=== PATIENT | male | born 1990 | race Caucasian/White ===

== ENCOUNTER 2016-07-18 07:10 | Day surgery (SDC) | payer BC ==
[2016-07-14 12:54] VITALS: BMI 20.7
[~2016-07-18 07:10] MED LIST: DEXAMETHASONE SOD PHOSPHATE 10 MG/ML 1 ML VIAL IV ONE; DEXAMETHASONE SOD PHOSPHATE 4 MG/ML 1 ML VIAL IV ONE; FAMOTIDINE 20 MG/2 ML VIAL IV ONE; LACTATED RINGERS 1,000 ML IV SCH; LIDOCAINE 1% 20 ML VIAL (10MG/ML) FOR IV START INTRADERMA PRN; ONDANSETRON 4 MG/2 ML VIAL IVP ONE; ONDANSETRON 4 MG/2 ML VIAL IVP STA; SCOPOLAMINE 1.5MG/72HR PATCH TRANSDERM ONE; ceFAZolin 2 GM in SODIUM CHLORIDE 0.9% 100 ML IVPB ONE; metroNIDAZOLE-NS PMX 500 MG in SALINE 1 100ML.BAG IVPB ONE
[2016-07-18] MEDS ORDERED: PROPOFOL 10 MG/ML 20 ML VIAL IV ONE (08:18)
[2016-07-18] MEDS ORDERED: LIDOCAINE 1% INJ 10MG/ML (20 ML MDV) ONE (08:18)
[2016-07-18] MEDS ORDERED: fentaNYL (PF) 50 MCG/ML 2 ML AMP ONE (08:18)
[2016-07-18] MEDS ORDERED: MIDAZOLAM 2 MG/2 ML VIAL ONE (08:18)
[2016-07-18] MEDS ORDERED: GLYCOPYRROLATE 0.2 MG/ML 2 ML VIAL ONE (08:18)
[2016-07-18] MEDS ORDERED: ROCURONIUM BROMIDE 10 MG/ML 10 ML VIAL IV ONE (08:18)
[2016-07-18] MEDS ORDERED: SUCCINYLCHOLINE CHLORIDE 100 MG/5 ML SYR IV ONE (08:18)
[2016-07-18] MEDS ORDERED: NEOSTIGMINE 1 MG/ML 10 ML VIAL ONE (08:18)
[2016-07-18] MEDS ORDERED: LIDOCAINE 1%-EPI 1:100,000 20 ML VIAL SQ ONE ×2 (08:51)
[2016-07-18] MEDS ORDERED: LACTATED RINGERS 1,000 ML IV ONE (10:07)
[2016-07-18] MEDS: HYDROmorphone 1 MG/ML 1 ML SYRINGE IVP PRN ×4 (10:20→10:40)
[2016-07-18 10:38] VITALS: TEMP 97.8
[2016-07-18] MEDS ORDERED: MEPERIDINE 50 MG/ML SYRINGE IVP ONE (10:49)
[2016-07-18 11:35] VITALS: RESP 18
[2016-07-18 13:50] VITALS: BP 130/76; PULSE 72
--- NOTE | 2016-07-18 22:06 | OP ---
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 POSTOPERATIVE DIAGNOSIS: Chronic right submandibular sialadenitis with sialoliths. OPERATION: 1. Right submandibular gland excision. 2. EMG facial nerve monitoring. ANESTHESIA: General. ESTIMATED BLOOD LOSS: Minimal, less than 5 mL. COMPLICATIONS: None. SPECIMENS REMOVED: OPERATIVE FINDINGS: INDICATIONS: This is a 25-year-old white male who has developed a calculus in the hilus of the right submandibular gland. He has had obstructive symptoms with the recurrent swelling with eating and drinking for about a month. The calculus was noted on a plain x-ray prior to a sialogram, although it was actually present on a CT scan prior to that which had not been visualized. OPERATIVE FINDINGS: Right submandible gland mildly diffusely enlarged and mildly inflamed with erythema. There was a calculus palpated 1 x 1.5 cm approximately within the hilus gland and the distal the duct distal to this was able to be ligated. PROCEDURE: The patient was brought to the operative suite, placed in the supine position. The patient underwent induction of general anesthesia with oral endotracheal intubation without difficulty. The patient was examined intraorally and with the calculus barely palpated intraorally quite deep into the floor of the mouth consistent with the calculus in the hilus and therefore was not felt that this could be extracted intraorally. The patient was then prepped and draped in the usual aseptic fashion after EMG NIM2 facial nerve monitors were placed in the orbicularis garett musculature. The monitor was tested and was working well to stimulus with tapping on over the orbicularis garett. Patient was then prepped and draped in the usual aseptic fashion. A transverse incision was then made 2-1/2 fingerbreadths below the mandible on the inferior to the submandibular gland on the right. This was carried sharply through the skin and subcutaneous tissue and platysma muscle. The inferior aspect of the gland was then identified and the posterior facial vein and artery were doubly clamped, divided and ligated inferior gland and retracted superiorly. The dissection then continued on the inferior and then lateral aspect of the gland to where it directly on the gland and therefore elevating the marginal mandibular branch of the facial nerve superiorly with the dissection. Inferior aspect of the gland was also dissected and then medially to dissect the gland from the digastric muscles and hypoglossal nerve was identified deep to this and left intact. Dissection then continued then from lateral to medial and inferior to superior to identify the calculus and the duct distal to this. The duct was isolated and doubly clamped, divided and ligated. The lingual nerve was then identified and its efferent nerves tracking to the submandibular glands were doubly clamped, divided and ligated. All ties were 3-0 Vicryl ties throughout the procedure. Dissection then continued to complete the gland removal. There was excellent hemostasis noted. The wound was copiously irrigated with sterile normal saline and again good hemostasis was noted. A one fourth inch Syd drain was then placed through the anterior aspect of the incision and was sutured to the skin with 5-0 Prolene suture. The platysma and subcutaneous layers were closed with inverted interrupted 4-0 Vicryl suture. The skin closed with running locking 5-0 Prolene suture. Bacitracin ointment and sterile dressing which was a light pressure dressing was then placed. Patient was then allowed to emerge from general anesthesia, having tolerated the procedure well, was extubated in the operating suite, transferred to postop recovery area in satisfactory condition. Note that the marginal mandibular branch of the facial nerve stimulated well at 0.5 mA prior to closure.
== END 2016-07-18 13:57 | disposition home or self-care (01) ==
LOC: OR 07:10
PROVIDERS: ATTEND Otolaryngology
DX: K11.23 Chronic sialoadenitis (principal); K11.5 Sialolithiasis; K21.9 Gastro-esophageal reflux disease without esophagitis; Z79.2 Long term (current) use of antibiotics; Z79.899 Other long term (current) drug therapy; Z72.0 Tobacco use
CPT/HCPCS: 88307; 42440; J2250; J1100; J2710; J2175; J2405; J2001; J3010; J1170; J0330; J2704

== ENCOUNTER 2020-06-03 09:38 | Day surgery (SDC) | payer BC ==
[2020-06-02 10:25] VITALS: BMI 22.2
[~2020-06-03 09:38] MED LIST changes: -DEXAMETHASONE SOD PHOSPHATE 10 MG/ML 1 ML VIAL IV ONE; -DEXAMETHASONE SOD PHOSPHATE 4 MG/ML 1 ML VIAL IV ONE; -FAMOTIDINE 20 MG/2 ML VIAL IV ONE; +LIDOCAINE 1% (10MG/ML) FOR IV START INTRADERMA PRN; -LIDOCAINE 1% 20 ML VIAL (10MG/ML) FOR IV START INTRADERMA PRN; -ONDANSETRON 4 MG/2 ML VIAL IVP ONE; -ONDANSETRON 4 MG/2 ML VIAL IVP STA; -SCOPOLAMINE 1.5MG/72HR PATCH TRANSDERM ONE; -ceFAZolin 2 GM in SODIUM CHLORIDE 0.9% 100 ML IVPB ONE; -metroNIDAZOLE-NS PMX 500 MG in SALINE 1 100ML.BAG IVPB ONE
[2020-06-03] MEDS ORDERED: LACTATED RINGERS 1,000 ML IV ONE (10:20)
[2020-06-03 10:21] VITALS: TEMP 97.8
[2020-06-03] MEDS ORDERED: MIDAZOLAM 2 MG/2 ML VIAL ONE (11:47)
[2020-06-03] MEDS ORDERED: fentaNYL (PF) 50 MCG/ML 2 ML AMP ONE (11:47)
[2020-06-03] MEDS ORDERED: PROPOFOL 10 MG/ML 20 ML VIAL IV ONE (11:47)
[2020-06-03] MEDS ORDERED: LIDOCAINE 1% INJ 10MG/ML (20 ML MDV) ONE (11:47)
--- NOTE | 2020-06-03 12:10 | P.PCN ---
Date of Procedure: 06/03/20 Procedure(s) Performed: Brief history: Patient is a pleasant 29-year-old white male scheduled for an elective upper endoscopy as well as colonoscopy as a part of evaluation of lower abdominal pain, right upper quadrant abdominal pain and chronic diarrhea for the last 6 months duration. Procedure performed: Esophagogastroduodenoscopy with biopsy Colonoscopy with biopsy Preoperative diagnosis: Right upper quadrant abdominal pain Lower abdominal pain and chronic diarrhea [place] [facility] [place]: After informed consent was obtained from the patient was brought into the endoscopy unit and IV sedation was administered by anesthesia under continuous monitoring. Initially upper endoscopy was done. The Olympus GF 160 video endoscope was inserted inserted into the mouth and esophagus intubated without any difficulty and was gradually advanced into the stomach and duodenum and carefully examined. The bulb and second part of the duodenum appeared normal. The scope was then withdrawn into the stomach adequately insufflated with air and upon careful examination the antrum had mild gastritis and biopsies were done from this area. The body, cardia and fundus appeared normal. The scope was then withdrawn into the esophagus. small sliding Hiatal hernia noted. The GE junction was located at 40 cm to the incisors. It appeared regular with no erythema erosions or ulcerations. The mucosa in the mid and distal esophagus appeared slightly thickened with longitudinal ridges and furrows suspicious for eosinophilic esophagitis and hence biopsies were done from this area. Rest of the esophagus appeared normal. Patient tolerated the procedure well. At this time the patient continued to remain sedation. Initial digital rectal examination was normal. Olympus CF 160 video colonoscope was then inserted into the rectum and gradually advanced to the cecum without any difficulty. Careful examination was performed as the scope was gradually being withdrawn. The prep was excellent. terminal ileum was intubated and 20 cm visualized and appeared normal The cecum, ascending colon, transverse colon, descending colon, sigmoid colon and rectum appeared normal. . Random biopsies were done from ascending and descending colon rule out microscopic/collagenous colitis. Retroflexion was performed in the rectum and no lesions were noted. Patient tolerated the procedure well. Impression: 1. Upper endoscopy revealed thickening distal esophageal folds with longitudinal ridges and photos suspicious for eosinophilic esophagitis status post biopsy. Small hiatal hernia and mild antral gastritis 2. Colonoscopy revealed normal-appearing colon from rectum to cecum as well as terminal ileum with no evidence of colitis or colorectal neoplasia Recommendations: Findings of this examination were discussed with the patient as well as his family. He was advised to follow with the biopsy results and will be seen in office in 2 weeks.
[2020-06-03 12:17] VITALS: RESP 16
[2020-06-03 12:47] VITALS: PULSE 82
[2020-06-03 12:50] VITALS: BP 128/89
== END 2020-06-03 12:55 ==
LOC: ORWHC2ENDO 09:38
PROVIDERS: ATTEND Internal Medicine Gastroenterology
DX: K20.90 Esophagitis, unspecified without bleeding (principal); K29.70 Gastritis, unspecified, without bleeding; K44.9 Diaphragmatic hernia without obstruction or gangrene; R19.7 Diarrhea, unspecified; F17.200 Nicotine dependence, unspecified, uncomplicated; Z98.890 Other specified postprocedural states; Z79.1 Long term (current) use of non-steroidal anti-inflammatories (NSAID)
CPT/HCPCS: 88305; 45380; 43239; J2250; J2001; J3010; J2704

== ENCOUNTER 2021-02-25 15:48 | Emergency (ER) | payer BC ==
[2021-02-25] MEDS ORDERED: LORazepam 1 MG TAB PO STA (16:27)
--- NOTE | 2021-02-25 17:07 | ED ---
General Adult HPI - General Chief complaint: Recheck/Abnormal Lab/Rx Stated complaint: High BP Time Seen by Provider: 02/25/21 16:10 Source: patient Mode of arrival: wheelchair Limitations: no limitations - History of Present Illness Initial comments: 30-year-old male presents emergency Department with a chief complaint of elevated blood pressure. Patient reports he patient about a blood pressure machine and has been getting consistently elevated blood pressures. Patient reports she is anxious whenever this begins to occur and cannot get it out of his mind. Patient reports she is also experiencing some intermittent shortness of breath and pressure in chest that does not appear to be pleuritic in nature. States this feels whenever he gets anxious. States used to see a therapist but has stopped due to Covid. Patient reports she also has rapid shallow breathing, flushed sensation in his upper extremities along with tingling. He denies any syncopal episodes. States he is not sleeping well. States he was recently started on Adderall - Related Data Home Medications Medication Instructions Recorded Confirmed Naproxen Sodium [Aleve] 220 mg PO DIRECTED PRN 06/02/20 06/02/20 Allergies Allergy/AdvReac Type Severity Reaction Status Date / Time No Known Allergies Allergy Verified 02/25/21 16:02 Review of Systems ROS Statement: Those systems with pertinent positive or pertinent negative responses have been documented in the HPI. ROS Other: All systems not noted in ROS Statement are negative. Past Medical History Past Medical History: No Reported History Additional Past Medical History / Comment(s): sees chiropractor ., states "bowel issues"- diarrhea and poor appetite., abdominal pain. History of Any Multi-Drug Resistant Organisms: None Reported Past Surgical History: No Surgical Hx Reported Additional Past Surgical History / Comment(s): saliva gland removed (jul 2016) Past Anesthesia/Blood Transfusion Reactions: Previous Problems w/ Anesthesia Additional Past Anesthesia/Blood Transfusion Reaction / Comment(s): woke up with headache Past Psychological History: Anxiety, Depression Smoking Status: Current every day smoker Past Alcohol Use History: Daily Past Drug Use History: Marijuana - Past Family History Mother Family Medical History: No Reported History General Exam Limitations: no limitations General appearance: alert, in no apparent distress, anxious Head exam: Present: atraumatic, normocephalic, normal inspection Eye exam: Present: normal appearance, PERRL, EOMI Pupils: Present: normal accommodation ENT exam: Present: normal exam, normal oropharynx, mucous membranes moist Neck exam: Present: normal inspection, full ROM Respiratory exam: Present: normal lung sounds bilaterally. Absent: respiratory distress Cardiovascular Exam: Present: regular rate, normal rhythm, normal heart sounds. 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 Ventricular rate 84, NC 114, QRS 94, QTC 427. Medical Decision Making - Medical Decision Making 30-year-old male presents to emergency Department with a chief complaint of elevated blood pressure. On physical examination, patient is quite anxious. This issue seems to be going on for quite some time. Patient is describing typical symptoms of acute anxiety.EKG performed at show sinus arrhythmia but no other acute ischemic changes. Patient was given 1 mg of Ativan. On reevaluation, he reports improvement in his symptoms. States the shortness of breath had improved. I advised him and the mother to follow-up with her primary care physician and possibly see a therapist or psychiatrist. Patient declined any homicidal, suicidal thoughts or ideations. Return parameters were thoroughly discussed with them were understanding and agreeable. Case discussed with physician Disposition Clinical Impression: Acute anxiety Disposition: HOME SELF-CARE Condition: Stable Instructions (If sedation given, give patient instructions): Anxiety (ED), Panic Attack (ED) Additional Instructions: Follow-up with a therapist or psychiatrist. Return to emergency department if symptoms worsen. Is patient prescribed a controlled substance at d/c from ED?: No Referrals: Angelika Felton MD [Primary Care Provider] - 1-2 days Time of Disposition: 17:07
[2021-02-25 17:35] VITALS: BP 138/90; PULSE 84; RESP 16; TEMP 98.1
== END 2021-02-25 17:35 | disposition home or self-care (01) ==
LOC: EC 15:48
DX: R20.2 Paresthesia of skin (principal); R06.02 Shortness of breath; R07.89 Other chest pain; F17.200 Nicotine dependence, unspecified, uncomplicated; F41.9 Anxiety disorder, unspecified
CPT/HCPCS: 93005; 99284

== ENCOUNTER → 2021-11-26 | Outpatient (CLI) | payer BC ==
--- NOTE | 2021-11-26 11:03 | FL ---
ESOPHOGRAM. HISTORY: Dysphagia Esophagram was performed per the air contrast technique. The patient swallowed barium and effervesce nt crystals without difficulty or delay. Esophageal peristalsis and motility appear to be within normal limits. There is no evidence for filling defect, mass or diverticulum. Small reducible sliding type hiatal hernia. Subsequently single contrast cervical esophagram was performed which fails demonstrate evidence for a spiration penetration or mass. IMPRESSION: Small reducible sliding type hiatal hernia.
== END | disposition home or self-care (01) ==
LOC: RADUSWWP 09:48
PROVIDERS: ATTEND Otolaryngology
DX: R13.10 Dysphagia, unspecified (principal)
CPT/HCPCS: 74220